=== PATIENT | female | born 1975 | race Caucasian/White ===

== ENCOUNTER → 2021-02-26 | Outpatient (CLI) | payer MEDICAID | LOC: MHCPAIN 12:45 | DX: M47.817 Spondylosis without myelopathy or radiculopathy, lumbosacral region (principal); M54.5 Low back pain; M53.3 Sacrococcygeal disorders, not elsewhere classified; M41.86 Other forms of scoliosis, lumbar region | CPT/HCPCS: G0463 ==

== ENCOUNTER → 2021-03-07 | Outpatient (CLI) | payer MEDICAID | LOC: MHCPAIN 12:44 | DX: M47.817 Spondylosis without myelopathy or radiculopathy, lumbosacral region (principal); M54.5 Low back pain; M53.3 Sacrococcygeal disorders, not elsewhere classified ==

== ENCOUNTER → 2021-03-28 | Outpatient (CLI) | payer MEDICAID | LOC: MHCPAIN 13:03 | DX: M47.817 Spondylosis without myelopathy or radiculopathy, lumbosacral region (principal); M54.5 Low back pain; M53.3 Sacrococcygeal disorders, not elsewhere classified | CPT/HCPCS: G0463 ==

== ENCOUNTER → 2021-05-30 | Outpatient (CLI) | payer MEDICAID | LOC: MHCPAIN 11:59 | DX: M47.817 Spondylosis without myelopathy or radiculopathy, lumbosacral region (principal); M54.50 Low back pain, unspecified; M53.3 Sacrococcygeal disorders, not elsewhere classified | CPT/HCPCS: G0463; J1100; J2250; J3010 ==

== ENCOUNTER → 2021-07-31 | Outpatient (CLI) | payer MEDICAID | LOC: MHCPAIN 12:52 | DX: M47.817 Spondylosis without myelopathy or radiculopathy, lumbosacral region (principal); M54.50 Low back pain, unspecified; M53.3 Sacrococcygeal disorders, not elsewhere classified | CPT/HCPCS: G0463 ==

== ENCOUNTER → 2021-08-15 | Outpatient (CLI) | payer MEDICAID | LOC: MHCPAIN 07:34 | DX: M47.817 Spondylosis without myelopathy or radiculopathy, lumbosacral region (principal); M54.50 Low back pain, unspecified; M53.3 Sacrococcygeal disorders, not elsewhere classified | CPT/HCPCS: J1040; J2250; J3010; Q9967 ==

== ENCOUNTER → 2021-10-16 | Outpatient (CLI) | payer MEDICAID | LOC: MHCPAIN 12:27 | DX: M47.816 Spondylosis without myelopathy or radiculopathy, lumbar region (principal); M25.551 Pain in right hip; M53.3 Sacrococcygeal disorders, not elsewhere classified | CPT/HCPCS: G0463 ==